=== PATIENT | male | born 1960 | race Caucasian/White ===

== ENCOUNTER 2020-07-19 11:55 | Outpatient (REF) | payer BC, SELFPAY ==
[2020-07-19 14:34] LABS: Ferritin 532 ng/mL (20-250)
== END 2020-07-19 11:56 | disposition home or self-care (01) ==
LOC: HO.BBR 11:55
PROVIDERS: PCP Internal Medicine; Visit Provider Internal Medicine Hematology & Oncology
DX: E83.110 Hereditary hemochromatosis (principal)
CPT/HCPCS: 36415; 82728

== ENCOUNTER 2020-08-01 14:15 | Outpatient (REF) | payer BC, SELFPAY | END 2020-08-01 14:16 | disposition home or self-care (01) | LOC: HO.BBR 14:15 | PROVIDERS: PCP Internal Medicine; Visit Provider Internal Medicine Hematology & Oncology | DX: Z13.89 Encounter for screening for other disorder (principal) ==

== ENCOUNTER 2020-08-15 10:05 | Outpatient (REF) | payer BC, SELFPAY | END 2020-08-15 10:06 | disposition home or self-care (01) | LOC: HO.BBR 10:05 | PROVIDERS: PCP Internal Medicine; Visit Provider Internal Medicine Hematology & Oncology | DX: Z13.89 Encounter for screening for other disorder (principal) ==

== ENCOUNTER 2020-09-07 14:27 | Outpatient (REF) | payer BC, SELFPAY | END 2020-09-07 14:28 | disposition home or self-care (01) | LOC: HO.BBR 14:27 | PROVIDERS: Visit Provider Internal Medicine Hematology & Oncology | DX: Z13.89 Encounter for screening for other disorder (principal) ==

== ENCOUNTER 2020-09-20 13:00 | Outpatient (REF) | payer BC, SELFPAY ==
[2020-09-20 14:03] LABS: Ferritin 200 ng/mL (20-250)
== END 2020-09-20 13:01 | disposition home or self-care (01) ==
LOC: HO.BBR 13:00
PROVIDERS: Visit Provider Internal Medicine Hematology & Oncology
DX: E83.110 Hereditary hemochromatosis (principal)
CPT/HCPCS: 36415; 82728

== ENCOUNTER 2020-10-06 13:08 | Outpatient (REF) | payer BC, SELFPAY | END 2020-10-06 13:09 | disposition home or self-care (01) | LOC: HO.BBR 13:08 | PROVIDERS: Visit Provider Internal Medicine Hematology & Oncology | DX: Z13.89 Encounter for screening for other disorder (principal) ==

== ENCOUNTER 2024-07-22 08:01 | Outpatient (REF) | payer BC, SELFPAY ==
--- OUTSIDE RECORDS SUMMARY | 2024-07-22 08:05 | XMS_ITS | Clinical Summary ---
Author Organization [facility] Address [address] [place] [address] Phone Care Team Providers Care Silk Weaver Name Role Phone Carlos Angel MD Primary Care Provider [phone] Allergies No known active allergies Medications multivitamin with minerals (CENTRUM/CERTA VIT) 18-400 mg-mcg tablet tablet Take 1 tablet by mouth. Active acyclovir (ZOVIRAX) 400 mg tablet Take 1 tablet (400 mg total) by mouth 2 (two) times a day. 4 Active ascorbic acid (VITAMIN C) 250 mg tablet Take 1 tablet (250 mg total) by mouth 1 (one) time each day. Active cholecalcifero l (VITAMIN D-3) 25 mcg (1,000 unit) tablet Take 1 tablet (1,000 Units total) by mouth 1 (one) time each day. Active sildenafiL (VIAGRA) 100 mg tablet Take 1 tablet (100 mg total) by mouth if needed for erectile dysfunction. 30 minutes prior to intercourse 10 tablet 3 5 Active sildenafiL (VIAGRA) 100 mg tablet Take 1 tablet (100 mg total) by mouth if needed for erectile dysfunction. 30 minutes prior to intercourse 3 025 Discontin ued(Reord er) polyethylene glycol (Golytely) 236-22.74-6.74 -5.86 gram solution Take 4L by mouth once for one dose. May substitue any PEG. Starting at 6PM the night before your procedure drink 1 8oz glasses at your own pace until you complete half of the gallon. Finish 2nd half of the gallon 5 hours before your procedure. 4000 mL 5 025 Discontin ued(Thera py completed ) bisacodyL (DULCOLAX) 5 mg EC tablet Take 2 tablets by mouth right before beginning bowel prep. See instructions provided by the office 2 tablet 5 025 Discontin ued(Thera py completed ) Active Problems Problem Noted Date Diagnosed Date Myelodysplasia (myelodysplastic syndrome) 2021 Hypertriglyceridemia 12/10/2013 Erectile dysfunction 10/20/2012 Encounters Date Type Department Care Team Description 06/30/2024 12:30 PM EST [facility] [address] [place] [address] Carlos Angel MD Adult general medical examination (Primary Dx); Screening for deficiency anemia; Screening for hyperlipidemia; Screening for diabetes mellitus; Screening for prostate cancer; Screening for thyroid disorder; Hearing loss, unspecified hearing loss type, unspecified laterality; Nocturia; Leg cramping; HIRAM (obstructive sleep apnea) 06/17/2024 2:31 PM EST Anesthesia Event [facility] Endoscopy [address] [place] [address] Daniel Jacobsen DO Chang, Daniel J, MD 06/17/2024 2:13 PM EST - 06/17/2024 11:59 PM EST Hospital Encounter [facility] Endoscopy [address] [place] [address] Stephanie Barton DO Korobkov, Vitaliy, DO Hx of adenomatous colonic polyps Discharge Disposition: Home or Self Care from Last 3 Months Immunizations Name Administration Dates Next Due Influenza Quadravalent, MDCK , 0.5ml, preservative free (Flucelvax) 6mo and older 02/11/2023 Influenza Quadravalent, MDCK , 0.5ml, with preservative (Flucelvax) 6mo and older 02/11/2020 Moderna SARS-CoV-2 COVID-19, mRNA, LNP-S, preservative free 04/24/2021,08/06/2020,07/09/2020 Pneumococcal polysaccharide 23 valent (Pneumovax 23) 2yo and older 10/31/2021 Td Tetanus diptheria (Tdvax) 7yo and older 01/23 Tdap Tetanus diptheria acell ular pertussis (Boostrix; Adacel) 7yo and older 01/05/2009 Surgical History Surgery Date Site/Laterality Comments OTHER SURGICAL HISTORY PROCEDURE: DENIES PREVIOUS SURGERY COLONOSCOPY 06/13/09 PROCEDURE: HISTORICAL COLONOSCOPY; COMMENT: adenoma and diverticulosis; repeat in three years COLONOSCOPY 03/30/13 PROCEDURE: CA COLONOSCOPY STOMA DX INCLUDING COLLJ SPEC SPX; COMMENT: tics; repeat in 5 yrs Medical History Medical History Date Comments Herpes zoster without mentio n of complication 05/22/2006 DX:Herpes zoster without men tion of complication Family History Medical History Relation Name Comments Colon cancer Father HTN Hypertension Mother Relation Name Status Comments Brother Alive Father COLON CA Mother Alive Sister 1 Alive Sister 2 Alive Social History Tobacco Use Types Packs/Day Years Used Date Smoking Tobacco: Never Smokeless Tobacco: Never Tobacco Cessation:Counseling Given: Not Answered Alcohol Use Standard Drinks/Week Comments Yes 0 (1 standard drink = 0.6 oz pur e alcohol) Housing Instability Answer Date Recorde d Are you worried that in the next 2 months you may not have stable housing? No 06/25/2024 Food Access & Nutrition Answer Date Rec orded Do you have access to a vari ety of food including fruits and vegetables? Yes 06/25/2024 Access to Healthcare Answer Date Record ed Within the last 3 months, ho w many times did you visit the emergency department for your medical care? 0 06/25/2024 Health Literacy Answer Date Recorded How often do you need to hav e someone help you when you read instructions, pamphlets, or other written material from your doctor or pharmacy? Never 06/25/2024 Caregiver: How often do you need to have someone help you when you read instructions, pamphlets, or other written material from your doctor or pharmacy? Not on file 06/25/2024 Financial Risk Answer Date Recorded How hard is it for you to pa y for the very basics like food, housing, medical care, and air conditioning / heating? Not very hard 06/25/2024 Transportation Answer Date Recorded Has the lack of transportati on kept you from meetings, work, or from getting things needed for daily living? No Has the lack of transportati on kept you from medical appointments or from getting medications? No 06/25/2024 Social Isolation Answer Date Recorded How often do you feel lonely or isolated from th ose around you? Never 06/25/2024 Food Risk Answer Date Recorded Within the past 12 months we worried whether our food would run out before we got money to buy more. Never true 06/25/2024 Within the past 12 months th e food we bought just didn't last and we didn't have money to get more. Never true 06/25/2024 Dependent Care Answer Date Recorded Do you need help finding or paying for care for your loved ones. For example, child monitor or elderly care for an older adult? No 06/25/2024 Education Answer Date Recorded Do you think completing more education or training, like finishing a GED, going to college, or learning a trade, would be helpful for you? No 06/25/2024 Employment and Income Answer Date Recor ded During the last four weeks, have you been actively looking for work? No 06/25/2024 Living Situation Answer Date Recorded What is your living situation? 0 06/25/2024 Interpersonal Safety Answer Date Record ed Physical Abuse 06/17/2024 Verbal Abuse 06/17/2024 Sex and Gender Information Value Date Recorded Sex Assigned at Male 06/17/2024 2:10 PM EST Legal Sex Male 1:54 AM EST Gender Identity Male 06/17/2024 2:10 PM EST Sexual Orientation Straight 06/17/2024 2: 10 PM EST Obstetrics History Last Filed Vital Signs Vital Sign Reading Time Taken Comments Blood Pressure 118/73 06/30/2024 12:40 PM EST A Pulse 84 06/30/2024 12:40 PM EST Temperature 36.1 ??C (97 ??F) 06/17/2024 2:30 PM EST Respiratory Rate 17 06/17/2024 3:16 PM EST Oxygen Saturation 100% 06/17/2024 3:16 PM EST Inhaled Oxygen Concentration - - Weight 96.6 kg (213 lb) 06/30/2024 12:40 PM EST Height 177.8 cm (5' 10 ) 06/30/2024 12:40 PM EST Body Mass Index 30.56 06/30/2024 12:40 PM EST Plan of Treatment Upcoming Encounters Date Type Department Care Team (Late st Contact Info) Description 08/20/2024 2:00 PM EDT Consult Vascular Surgery - [place] [address] [place] [address] Rachele Snider MD [address] [place] [address] Health Maintenance Due Date Last Done Comments Pneumococcal Vaccine: 50+ Years (2 of 2 - PCV) 10/31/2022 10/31/2021 Pneumococcal Vaccine: Pediatrics (0 to 5 Years) and At-Risk Patients (6 to 64 Years) (2 of 2 - PCV) 10/31/2022 10/31/2021 Falls Risk Assessment 06/17/2025 06/17/2024 Depression Screening 06/25/2025 06/25/2024 Social Influencers of Health Screening 06/25/2025 06/25/2024 DTaP,Tdap,and Td Vaccines (3 - Td or Tdap) 01/23/2029 01/23/2019, 01/05/2009 Colorectal Cancer Screening: Colonoscopy 06/17/2029 06/17/2024, 10/13/2018 Cholesterol Screening (Lipid Panel) 07/06/2029 07/06/2024, 02/11/2023 RSV Immunization Patients 60+ Years Old (1 - 1-dose 75+ series) 2033 Hepatitis C Screening Completed 03/04/2015 Zoster Vaccines Completed 07/14/2021, 04/24/2021 Influenza Vaccine Completed 02/28/2024, , 01/30/2021, Additional history exists COVID-19 Vaccine Completed 04/29/2024, 07/2022, 03/28/2022, Additional history exists HIB Vaccines Aged Out No longer eligi ble based on patient's age to complete this topic HPV Vaccines Aged Out No longer eligi ble based on patient's age to complete this topic Hepatitis A Vaccines Aged Out No long er eligible based on patient's age to complete this topic Hepatitis B Vaccines Aged Out No long er eligible based on patient's age to complete this topic IPV Vaccines Aged Out No longer eligi ble based on patient's age to complete this topic MMR Vaccines Aged Out No longer eligi ble based on patient's age to complete this topic Meningococcal ACWY Vaccine Aged Out N o longer eligible based on patient's age to complete this topic Meningococcal B Vacine Aged Out No lo nger eligible based on patient's age to complete this topic RSV Immunization Patients Under 20 months Aged Out No longer eligible based on patient's age to complete this topic Varicella Vaccines Aged Out No longer eligible based on patient's age to complete this topic Procedures Procedure Name Priority Date/Time Associated Diagnosis Comments PROSTATE SPECIFIC ANTIGEN SCREEN Routine 07/06/2024 9:55 AM EST Screening for deficiency anemia Screening for diabetes mellitus Screening for hyperlipidemia Screening for thyroid disorder Encounter for screening prostate specific antigen (PSA) measurement THYROID STIMULATING HORMONE WITH REFLEX TO FREE T4 AND FREE T3 Routine 07/06/2024 9:55 AM EST Screening for thyroid disorder LIPID PANEL WITH REFLEX TO DIRECT LDL Routine 07/06/2024 9:55 AM EST Screening for hyperlipidemia COMPREHENSIVE METABOLIC PANEL Routine 07/06/2024 9:55 AM EST Screening for diabetes mellitus COLONOSCOPY Routine 06/17/2024 2:55 PM EST Hx of adenomatous colonic polyps TISSUE EXAM Routine 06/17/2024 2:47 PM EST Hx of adenomatous colonic polyps HEPATITIS C SCREENING Routine 03/04/2015 from Last 3 Months or Most Recently Relevant to Health Maintenance Results * Prostate specific antigen screen (07/06/2024 9:55 AM EST) PSA 0.68 0.00 - 4.00 ng/mL LAB CHEMISTRY METHOD 07/06/2024 3:40 PM EST [facility] Blood Venous blood specimen / Unknown Venipuncture / Unknown 07/06/2024 9:55 AM EST 07/06/2024 9:55 AM EST Narrative [facility] - 07/06/2024 3:40 PM EST The Siemens Advia Centaur Chemiluminescent Immunoassay is used. Results obtained with different assay methods or kits cannot be used interchangeably. Results cannot be interpreted as absolute evidence of the presence or absence of malignant disease. us Carlos Angel MD LAB BLOOD ORDERABLES Final Res ult Performing Organization Address [facility]/ZIP Co de Phone Number [facility] [address] [place] [address], [place] [phone] * Thyroid stimulating hormone with reflex to free t4 and free t3 (07/06/2024 9:55 AM EST) Pathologist [facility] [place] TSH 2.77 0.40 - 4.00 mcIU/mL LAB CHEMISTRY METHOD 07/06/2024 2:54 PM EST [facility] Blood Venous blood specimen / Unknown Venipuncture / Unknown 07/06/2024 9:55 AM EST 07/06/2024 9:55 AM EST us Carlos Angel MD LAB BLOOD ORDERABLES Final Res ult Performing Organization Address [facility]/ZIP Co de Phone Number [facility] [address] [place] [address], [place] [phone] * (ABNORMAL) Lipid panel with reflex to direct LDL (07/06/2024 9:55 AM EST) Cholesterol 180 0 - 200 mg/dL LAB CHEMISTRY METHOD 07/06/2024 3:17 PM EST [facility] Triglycerides 171(H) 0 - 150 mg/dL LAB CHEMISTRY METHOD 07/06/2024 3:17 PM EST [facility] HDL 53 >=40 mg/dL LAB CHEMISTRY METHOD 07/06/2024 3:17 PM EST [facility] LDL Calculated 93 0 - 100 mg/dL LAB CHEMISTRY METHOD 07/06/2024 3:17 PM EST [facility] VLDL Cholesterol Mick 34.2 mg/dL LAB CHEMISTRY METHOD 07/06/2024 3:17 PM [facility] Non HDL Chol. (LDL+VLDL) 127 <145 mg/dL LAB CHEMISTRY METHOD 07/06/2024 3:17 PM [facility] Chol/HDL Ratio 3.4 0.0 - 4.4 LAB CHEMISTRY METHOD 07/06/2024 3:17 PM [facility] Blood Venous blood specimen / Unknown Venipuncture / Unknown 07/06/2024 9:55 AM EST 07/06/2024 9:55 AM EST us Carlos Angel MD LAB BLOOD ORDERABLES Final Res ult [facility] [address] [place] [address], [place] [phone] * (ABNORMAL) Comprehensive metabolic panel (07/06/2024 9:55 AM EST) Sodium 134 133 - 145 mmol/L LAB CHEMISTRY METHOD 07/06/2024 3:17 PM [facility] Potassium 5.0 3.5 - 5.5 mmol/L LAB CHEMISTRY METHOD 07/06/2024 3:17 PM [facility] Chloride 101 96 - 110 mmol/L LAB CHEMISTRY METHOD 07/06/2024 3:17 PM [facility] CO2 30 21 - 32 mmol/L LAB CHEMISTRY METHOD 07/06/2024 3:17 PM [facility] Anion Gap 3 3 - 11 LAB CHEMISTRY METHOD 07/06/2024 3:17 PM [facility] Glucose 98 70 - 100 mg/dL LAB CHEMISTRY METHOD 07/06/2024 3:17 PM [facility] BUN 17 5 - 25 mg/dL LAB CHEMISTRY METHOD 07/06/2024 3:17 PM [facility] Creatinine 1.36(H) 0.70 - 1.30 mg/dL LAB CHEMISTRY METHOD 07/06/2024 3:17 PM [facility] eGFR 58(L) >=60 mL/min/1. 73m2 LAB CHEMISTRY METHOD 07/06/2024 3:17 PM [facility] Comment:Calculation based on the??Chronic Kidney Disease Epidemiology Collaboration (CKD-EPI) equation refit??without adjustment for race. BUN/Creatinine Ratio 12.5 LAB CHEMISTRY METHOD 07/06/2024 3:17 PM [facility] Calcium 9.5 8.5 - 10.5 mg/dL LAB CHEMISTRY METHOD 07/06/2024 3:17 PM [facility] AST (SGOT) 33 10 - 42 unit/L LAB CHEMISTRY METHOD 07/06/2024 3:17 PM [facility] ALT (SGPT) 33 10 - 60 unit/L LAB CHEMISTRY METHOD 07/06/2024 3:17 PM [facility] Alkaline Phosphatase 74 42 - 121 unit/L LAB CHEMISTRY METHOD 07/06/2024 3:17 PM [facility] Total Protein 7.6 6.0 - 8.0 g/dL LAB CHEMISTRY METHOD 07/06/2024 3:17 PM [facility] Albumin 3.9 3.2 - 5.0 g/dL LAB CHEMISTRY METHOD 07/06/2024 3:17 PM [facility] Total Bilirubin 0.9 0.0 - 1.4 mg/dL LAB CHEMISTRY METHOD 07/06/2024 3:17 PM [facility] Blood Venous blood specimen / Unknown Venipuncture / Unknown 07/06/2024 9:55 AM EST 07/06/2024 9:55 AM EST us Carlos Angel MD LAB BLOOD ORDERABLES Final Res ult [facility] [address] [place], [place] [address] [phone] * COLONOSCOPY Anesthesia - MAC; [facility] ENDOSCOPY (06/17/2024 2:55 PM EST) Anatomical Region Laterality Modality Endoscopy 06/17/2024 2:22 PM EST Impressions 06/17/2024 2:55 PM EST - Hemorrhoids found on perianal exam. ? - One 7 mm polyp in the ascending colon, removed with ? a cold snare. Resected and retrieved. ? - The examination was otherwise normal on direct and ? retroflexion views. ? - Congested mucosa in the sigmoid colon. Biopsied. Recommendation: ?- - Discharge patient to home. ? - High fiber diet. ? - Continue present medications. ? - Await pathology results. ? - Repeat colonoscopy for surveillance based on ? pathology results. Narrative 06/17/2024 2:55 PM EST [facility] GI Patient Name: Yann Patel Procedure Date: 06/17/2024 2:22 PM Date of : 1960 Age: 63 Gender: Male Note Status: Finalized Attending MD: Stephanie Barton DO, [id number] Procedure Date No Time: 06/17/2024 Procedure: ? Colonoscopy Indications: ? High risk colon cancer surveillance: Personal history ? of colonic polyps Providers: ? Stephanie Barton DO Referring MD: ?Carlos Angel MD Medicines: ? Monitored Anesthesia Care Complications: ? No immediate complications. Estimated blood loss: ? Minimal. Estimated Blood Loss: ? Estimated blood loss was minimal. Procedure: ? Pre-Anesthesia Assessment: ? - - Prior to the procedure, a History and Physical was ? performed, and patient medications and allergies were ? reviewed. The patient is competent. The risks and ? benefits of the procedure and the sedation options and ? risks were discussed with the patient. All questions ? were answered and informed consent was obtained. ? Patient identification and proposed procedure were ? verified by the physician, the nurse, the ? anesthesiologist, the ediscovery project manager and the environmental health technician ? in the pre-procedure area in the endoscopy suite. ? Mental Status Examination: alert and oriented. Airway ? Examination: normal oropharyngeal airway and neck ? mobility. Respiratory Examination: clear to ? auscultation. CV Examination: normal. Prophylactic ? Antibiotics: The patient does not require prophylactic ? antibiotics. Prior Anticoagulants: The patient has ? taken no anticoagulant or antiplatelet agents. ASA ? Grade Assessment: II - A patient with severe systemic ? disease. After reviewing the risks and benefits, the ? patient was deemed in satisfactory condition to ? undergo the procedure. The anesthesia plan was to use ? monitored anesthesia care (MAC). Immediately prior to ? administration of medications, the patient was ? re-assessed for adequacy to receive sedatives. The ? heart rate, respiratory rate, oxygen saturations, ? blood pressure, adequacy of pulmonary ventilation, and ? response to care were monitored throughout the ? procedure. The physical status of the patient was ? re-assessed after the procedure. ? After I obtained informed consent, the scope was ? passed under direct vision. Throughout the procedure, ? the patient's blood pressure, pulse, and oxygen ? saturations were monitored continuously. The ? Colonoscope was introduced through the anus and ? advanced to the cecum, identified by appendiceal ? orifice and ileocecal valve. The colonoscopy was ? performed without difficulty. The patient tolerated ? the procedure well. Findings: ?Hemorrhoids were found on perianal exam. ? A few small-mouthed diverticula were found in the ? sigmoid colon and descending colon. There was no ? evidence of diverticular bleeding. ? A 7 mm polyp was found in the ascending colon. The ? polyp was sessile. The polyp was removed with a cold ? snare. Resection and retrieval were complete. ? Estimated blood loss was minimal. ? The exam was otherwise without abnormality on direct ? and retroflexion views. ? An area of mildly congested mucosa was found in the ? sigmoid colon. This was biopsied with a cold forceps ? for histology. Estimated blood loss was minimal. Procedure Code(s): ? --- Professional --- ? 36882, Colonoscopy, flexible; with removal of ? tumor(s), polyp(s), or other lesion(s) by snare ? technique ? 48331, 59, Colonoscopy, flexible; with biopsy, single ? or multiple Diagnosis Code(s): ? --- Professional --- ? Z86.010, Personal history of colonic polyps ? K64.9, Unspecified hemorrhoids ? D12.2, Benign neoplasm of ascending colon ? K63.89, Other specified diseases of intestine CPT copyright 2020 [employer]. All rights reserved. The codes documented in this report are preliminary and upon physician support coordinator review may be revised to meet current compliance requirements. STEPHANIE Barton DO 06/17/2024 2:54:56 PM This report has been signed electronically.Stephanie Barton DO Number of Addenda: 0 Note Initiated On: 06/17/2024 2:22 PM Scope Withdrawal Time: 0 hours 6 minutes 20 seconds Scope In: 2:43:23 PM Scope Out: 2:52:53 PM ? Endoscopy Department at [facility] - [address] [place] [address], ? [place] [address] Procedure Note Stephanie Barton DO - 06/17/2024 [facility] GI Patient Name: Yann Patel Procedure Date: 06/17/2024 2:22 PM Date of : 1960 Age: 63 Gender: Male Note Status: Finalized Attending MD: Stephanie Barton DO, [id number] Procedure Date No Time: 06/17/2024 Procedure: Colonoscopy Indications: High risk colon cancer surveillance: Personalhistory of colonic polyps Providers: Stephanie Barton DO Referring MD: Carlos Angel MD Medicines: Monitored Anesthesia Care Complications: No immediate complications. Estimated blood loss: Minimal. Estimated Blood Loss: Estimated blood loss was minimal. Procedure: Pre-Anesthesia Assessment: - - Prior to the procedure, a History and Physicalwas performed, and patient medications and allergieswere reviewed. The patient is competent. The risks and benefits of the procedure and the sedation optionsand risks were discussed with the patient. Allquestions were answered and informed consent was obtained. Patient identification and proposed procedure were verified by the physician, the nurse, the anesthesiologist, the ediscovery project manager and thetechnician in the pre-procedure area in the endoscopy suite. Mental Status Examination: alert and oriented.Airway Examination: normal oropharyngeal airway and neck mobility. Respiratory Examination: clear to auscultation. CV Examination: normal. Prophylactic Antibiotics: The patient does not requireprophylactic antibiotics. Prior Anticoagulants: The patient has taken no anticoagulant or antiplatelet agents. ASA Grade Assessment: II - A patient with severesystemic disease. After reviewing the risks and benefits,the patient was deemed in satisfactory condition to undergo the procedure. The anesthesia plan was touse monitored anesthesia care (MAC). Immediately priorto administration of medications, the patient was re-assessed for adequacy to receive sedatives. The heart rate, respiratory rate, oxygen saturations, blood pressure, adequacy of pulmonary ventilation,and response to care were monitored throughout the procedure. The physical status of the patient was re-assessed after the procedure. After I obtained informed consent, the scope was passed under direct vision. Throughout theprocedure, the patient's blood pressure, pulse, and oxygen saturations were monitored continuously. The Colonoscope was introduced through the anus and advanced to the cecum, identified by appendiceal orifice and ileocecal valve. The colonoscopy was performed without difficulty. The patient tolerated the procedure well. Findings: Hemorrhoids were found on perianal exam. A few small-mouthed diverticula were found in the sigmoid colon and descending colon. There was no evidence of diverticular bleeding. A 7 mm polyp was found in the ascending colon. The polyp was sessile. The polyp was removed with acold snare. Resection and retrieval were complete. Estimated blood loss was minimal. The exam was otherwise without abnormality ondirect and retroflexion views. An area of mildly congested mucosa was found in the sigmoid colon. This was biopsied with a coldforceps for histology. Estimated blood loss was minimal. Procedure Code(s): --- Professional --- 08869, Colonoscopy, flexible; with removal of tumor(s), polyp(s), or other lesion(s) by snare technique 80117, 59, Colonoscopy, flexible; with biopsy,single or multiple Diagnosis Code(s): --- Professional --- Z86.010, Personal history of colonic polyps K64.9, Unspecified hemorrhoids D12.2, Benign neoplasm of ascending colon K63.89, Other specified diseases of intestine CPT copyright 2020 [employer]. All rights reserved. The codes documented in this report are preliminary and upon physician support coordinator reviewmay be revised to meet current compliance requirements. STEPHANIE Barton DO 06/17/2024 2:54:56 PM This report has been signed electronically.Stephanie Barton DO Number of Addenda: 0 Note Initiated On: 06/17/2024 2:22 PM Scope Withdrawal Time: 0 hours 6 minutes 20 seconds Scope In: 2:43:23 PM Scope Out: 2:52:53 PM Endoscopy Department at [facility] - [address] [place] [id number] IMPRESSION: - Hemorrhoids found on perianal exam. - One 7 mm polyp in the ascending colon, removedwith a cold snare. Resected and retrieved. - The examination was otherwise normal on directand retroflexion views. - Congested mucosa in the sigmoid colon.Biopsied. Recommendation: - - Discharge patient to home. - High fiber diet. - Continue present medications. - Await pathology results. - Repeat colonoscopy for surveillance based on pathology results. Stephanie Barton DO GI~PROCEDURE ORDERABLES Final Re sult * Tissue exam (06/17/2024 2:47 PM EST) Final Diagnosis A. Large Intestine, Right/Ascending Colon, polyp x1: - Tubular adenoma. B. Large Intestine, Sigmoid Colon, segmental colitis biopsy: - Colonic mucosa with lamina propria hemorrhage. - Negative for acute inflammation, architectural distortion, and granuloma. 06/18/2024 12:29 PM EST [facility] Gross Description A. Large Intestine, Right/Ascending Colon, polyp x1: Labeled ascending colon polyp x 1 . Received in formalin are three irregular brody mucosal tissue fragments, ranging from 0.2 cm to 0.5 cm in greatest dimension, which are wrapped in paper and submitted in toto in one cassette, three pieces, multiple levels on one slide. B. Large Intestine, Sigmoid Colon, segmental colitis biopsy: Labeled segmental, sigmoid colon . Received in formalin are two irregular pink-red mucosal tissue fragments, each measuring approximately 0.3 cm in greatest dimension, which are wrapped in paper and submitted in toto in one cassette, two pieces, multiple levels on one slide. LOAN 06/18/2024 12:29 PM EST [facility] Disclaimer Unless otherwise specified, all tissue is 10% NB formalin fixed and paraffin embedded. 06/18/2024 12:29 PM EST [facility] Tissue Ascending colon structure / Unknown 06/17/2024 2:47 PM EST 06/17/2024 3:56 PM EST Tissue specimen (specimen) Sigmoid colon structure / Unknown 06/17/2024 2:50 PM EST 06/17/2024 3:56 PM EST Stephanie Barton DO LAB PATHOLOGY ORDERABLES Final R esult [facility] [address] [place] [address], * Hepatitis C Screening (03/04/2015) Hepatitis C Screening Abstracted Historical Provider HEALTH MAINTENANCE Final Result from Last 3 Months or Most Recently Relevant to Health Maintenance [place] [address] [facility] MEDICARE Care Teams Silk Weaver Relationship Specialty Start Date End Date Carlos Angel MD [address] [place] [phone] PCP - General 12/11/08
--- OUTSIDE RECORDS SUMMARY | 2024-07-22 08:05 | XMS_ITS | Encounter Summary ---
Author Organization [facility] Address [address] [place] [address] Care Team Providers Care Content Strategist Name Role Phone Carlos Angel MD Primary Care Provider [phone] Reason for Referral * Consultation (Routine) - Authorized Specialty Diagnoses / Procedures Referred By Alvarez t Referred To Contact Pulmonary Disease Diagnoses HIRAM (obstructive sleep apnea) Carlos Angel MD [address] [place] [address] Phone: tel: fax: Laci Parsons MD [address] [place] [address] Phone: tel: fax: Referral ID Status Reason Start Date Expiration Date Visits Requested Visits Authorized [id number] Authorized Specialty Services Required 06/30/2024 06/30/2025 1 1 * Consultation (Routine) - Authorized Specialty Diagnoses / Procedures Referred By Contac t Referred To Contact Vascular Surgery Diagnoses Leg cramping Carlos Angel MD [address] [place] [address] Phone: tel: fax: Rachele Snider MD [address] [address] Phone: tel: fax: Referral ID Status Reason Start Date Expiration Date Visits Requested Visits Authorized [id number] Authorized Specialty Services Required 06/30/2024 06/30/2025 1 1 * Consultation (Routine) - Authorized Specialty Diagnoses / Procedures Referred By Contac t Referred To Contact Urology Diagnoses Nocturia Carlos Angel MD [address] [place] [phone] Phone: tel: fax: Yann Ching MD [address] [phone] Phone: tel: Referral ID Status Reason Start Date Expiration Date Visits Requested Visits Authorized [id number] Authorized Specialty Services Required 06/30/2024 06/30/2025 6 6 * Consultation (Routine) - Authorized Specialty Diagnoses / Procedures Referred By Contac t Referred To Contact Audiology Diagnoses Hearing loss, unspecified hearing loss type, unspecified laterality Carlos Angel MD [address] [place] [phone] Phone: tel: fax: [address] Phone: tel: Referral ID Status Reason Start Date Expiration Date Visits Requested Visits Authorized [id number] Authorized Specialty Services Required 06/30/2024 06/30/2025 6 6 Reason for Visit * Reason Comments Annual Exam Encounter Details Date Type Department Care Team (Late st Contact Info) Description 06/30/2024 12:30 PM EST Office Visit Internal Medicine - [address] [phone] Carlos Angel MD [address] [place] [phone] Adult general medical examination (Primary Dx); Screening for deficiency anemia; Screening for hyperlipidemia; Screening for diabetes mellitus; Screening for prostate cancer; Screening for thyroid disorder; Hearing loss, unspecified hearing loss type, unspecified laterality; Nocturia; Leg cramping; HIRAM (obstructive sleep apnea) Social History Tobacco Use Types Packs/Day Years [...] for your loved ones. For example, child care giver or elderly care for an older adult? [...] Orientation Straight 06/17/2024 2: 10 PM EST documented as of this encounter Last Filed Vital Signs Vital Sign Reading Time Taken Comments Blood Pressure 118/73 06/30/2024 12:40 PM EST A Pulse 84 06/30/2024 12:40 PM EST Temperature - - Respiratory Rate - - Oxygen Saturation - - Inhaled Oxygen Concentration - - Weight 96.6 kg (213 lb) 06/30/2024 12:40 PM EST Height 177.8 cm (5' 10 ) 06/30/2024 12:40 PM EST Body Mass Index 30.56 06/30/2024 12:40 PM EST documented in this encounter Ordered Prescriptions Prescription Sig Dispense Quantity Refills Last Filled Start Date End Date sildenafiL (VIAGRA) 100 mg tablet Take 1 tablet (100 mg total) by mouth if needed for erectile dysfunction. 30 minutes prior to intercourse 10 tablet 3 06/30/2024 documented in this encounter Progress Notes * Carlos Angel MD - 06/30/2024 12:30 PM EST CHIEF COMPLAINT: Annual Exam IDENTIFIER: Yann Gracia is a 63 y.o. old male. History of Present Illness The patient presents for a physical exam. He reports experiencing nocturia, necessitating 6 to 7 bathroom visits per night, with a usual frequency of 3 to 4 times. He recalls being prescribed medication by a urologist to manage this symptom,but it has not been effective. He also mentions occasional leg cramps at night, particularly in the calves, and sporadic rib discomfort. These symptoms are not severe enough to disrupt his sleep, but he often finds relief from walking. He maintains a high water intake throughout the day and incorporates an hour of walking into his daily routine. He has been diagnosed with mild sleep apnea, but he does not perceive it as a significant issue. His has observed him gasping for air during sleep, leading her to suggest the use of a CPAP mask,which he is reluctant to use. He is requesting a refill of sildenafil. His has expressed concerns about his hearing, prompting him to inquire about potential interventions. Supplemental Information He is being treated for myelodysplastic syndrome. MEDICATIONS Sildenafil. IMMUNIZATIONS He has received the most recent COVID-19 and influenza vaccines. ROS: GENERAL: Negative for malaise, significant weight loss and fever HEENT: No changes in hearing or vision. No nosebleeds or other nasal problems NECK: Negative for lumps, goiter, pain, and significant neck swelling RESPIRATORY: No cough, wheezing or shortness of breath CARDIOVASCULAR: Negative for chest pain, leg swelling and palpitations GI: Negative for abdominal discomfort, changes in bowel habits, blood in stool or black stools : Negative for dysuria, frequency, and incontinence MUSCULOSKELETAL: Negative for joint pain or swelling, back pain and muscle pain. SKIN: No lesions, rash, or itching PSYCH: No sleep disturbances, depression or major stressors HEMATOLOGY/LYMPHOLOGY: No prolonged bleeding, easy bruising, or swollen lymph nodes ENDOCRINE: Negative for cold or heat intolerance, polyuria, polydipsia and goiter NEURO: No persistent headache, fainting, seizures, strokes, TIAs, weakness, numbness or tingling The remainder of review of systems is noncontributory. PAST MEDICAL HISTORY: Patient Active Problem List Diagnosis Date Noted Myelodysplasia (myelodysplastic syndrome) ([facility]) 06/09/2021 Hypertriglyceridemia 12/10/2013 Erectile dysfunction 10/20/2012 SOCIAL HISTORY: Social History Tobacco Use Smoking status: Never Smokeless tobacco: Never Substance Use Topics Alcohol use: Yes FAMILY HISTORY: Family Status Relation Name Status Mother Alive Father COLON CA Sister Alive Sister Alive Brother Alive No partnership data on file Family History Problem Relation Name Age of Onset Hypertension Mother Colon cancer Father HTN ACTIVE MEDICATIONS: Outpatient Medications Marked as Taking for the 06/30/24 encounter (Office Visit) with Carlos Angel MD Medication Sig Dispense Refill acyclovir (ZOVIRAX) 400 mg tablet Take 1 tablet (400 mg total) by mouth 2 (two) times a day. sildenafiL (VIAGRA) 100 mg tablet Take 1 tablet (100 mg total) by mouth if needed for erectile dysfunction. 30 minutes prior to intercourse 10 tablet 3 [DISCONTINUED] sildenafiL (VIAGRA) 100 mg tablet Take 1 tablet (100 mg total) by mouth if needed for erectile dysfunction. 30 minutes prior to intercourse ALLERGIES: Patient has no known allergies. PHYSICAL EXAM: Blood pressure 118/73, pulse 84, height 1.778 m (70 ), weight 96.6 kg (213 lb). Body mass index is 30.56 kg/m??. BMI is greater than 25.0 (above the normal range) - see Plan APPEARANCE: healthy EYES: PERRLA, conjunctiva and sclera normal and normal fundal exam EARS: External ears normal. Canals clear. TMs normal. NOSE/SINUS: Nares normal. Septum midline. Mucosa normal. No drainage or sinus tenderness MOUTH/THROAT: no erythema, lesions, or exudates NECK: Neck supple, no adenopathy, thyroid symmetric and of normal size HEART: RRR with normal S1 and S2, no murmurs, no gallops, no JVD appreciated CHEST: non-tender LUNG: clear to auscultation bilaterally ABDOMEN: Bowel sounds normoactive, no bruits and soft, non-tender, without organomegaly or palpablemasses BACK: no pain to palpation and good flexion and extension EXTREMITIES: Extremities warm and well perfused without clubbing, cyanosis, or edema NEURO: Awake, alert and oriented x 3 and reflexes symmetrical SKIN: Skin color, texture, turgor normal. No rashes or lesions. LABS/IMAGING: No results found for: WBC , HGB , HCT , MCV No results found for: NA , K , CO2 , CL , BUN , GLU , ALB , ALKPHOS , TP Lab Results Component Value Date CHOL 153 02/11/2023 LDL 62 02/11/2023 HDL 40 02/11/2023 TRIG 258 (A) 02/11/2023 IMPRESSION: 1. Adult general medical examination 2. Screening for deficiency anemia 3. Screening for hyperlipidemia 4. Screening for diabetes mellitus 5. Screening for prostate cancer 6. Screening for thyroid disorder 7. Hearing loss, unspecified hearing loss type, unspecified laterality 8. Nocturia 9. Leg cramping 10. HIRAM (obstructive sleep apnea) PLAN: 1. Health maintenance: The patient presented for an evaluation of general health. As part of this visit, we reviewed the following issues, which are considered an essential part of preventative health in this age group: - Prostate cancer screening with digital rectal exam and PSA testing in those expected to live for at least ten years - ordered - Colon cancer screening (colonoscopy every 10 years/annual FOBT plus flexi sigmoidoscopy every 5 years/double-contrast BE every 5 years/Cologuard every 3 years/Annual FOBT) - up to date. May discontinue at age 80 at the discretion of patient and provider. - Blood pressure screening yearly - Screening for Type 2 diabetes mellitus in those with hypertension and/or hyperlipidemia - Recommendations about immunizations - patient is up-to-date on immunizations I have obtained verbal consent from Yann Gracia prior to the recording. I have advised Yann Gracia that he may refuse the recording and require the recording to be turned off at any time duringthis encounter. Orders Placed This Encounter Procedures Complete blood count Standing Status: Future Standing Expiration Date: 06/30/2025 Comprehensive metabolic panel Standing Status: Future Standing Expiration Date: 06/30/2025 Lipid panel with reflex to direct LDL Standing Status: Future Standing Expiration Date: 06/30/2025 Prostate specific antigen screen Standing Status: Future Number of Occurrences: 1 Standing Expiration Date: 06/30/2025 Thyroid stimulating hormone with reflex to free t4 and free t3 Standing Status: Future Standing Expiration Date: 06/30/2025 Ambulatory referral to Audiology Standing Status: Future Standing Expiration Date: 06/30/2025 Referral Priority: Routine Referral Type: Consultation Referral Reason: Specialty Services Required Requested Specialty: Audiology Number of Visits Requested: 1 Ambulatory referral to Urology Standing Status: Future Standing Expiration Date: 06/30/2025 Referral Priority: Routine Referral Type: Consultation Referral Reason: Specialty Services Required Requested Specialty: Urology Number of Visits Requested: 1 Ambulatory referral to Vascular Surgery Standing Status: Future Standing Expiration Date: 06/30/2025 Referral Priority: Routine Referral Type: Consultation Referral Reason: Specialty Services Required Requested Specialty: Vascular Surgery Number of Visits Requested: 1 Ambulatory referral to Pulmonology Standing Status: Future Standing Expiration Date: 06/30/2025 Referral Priority: Routine Referral Type: Consultation Referral Reason: Specialty Services Required Requested Specialty: Pulmonary Disease Number of Visits Requested: 1 Carlos Angel MD on 06/30/2024 at 1:15 PM EST documented in this encounter Plan of Treatment Upcoming Encounters Date Type Department Care Team (Late st Contact Info) Description 08/20/2024 2:00 PM EDT Consult Vascular Surgery - [place] [address] [place] [address] Rachele Snider MD [address] [place] [address] Scheduled Referrals Name Type Priority Associated Diagnoses Order Schedule Ambulatory referral to Audiology Outpatient Referral Routine Hearing loss, unspecified hearing loss type, unspecified laterality 1 Occurrences starting 06/30/2024 until 06/30/2025 Ambulatory referral to Urology Outpatient Referral Routine Nocturia 1 Occurrences starting 06/30/2024 until 06/30/2025 Ambulatory referral to Vascular Surgery Outpatient Referral Routine Leg cramping 1 Occurrences starting 06/30/2024 until 06/30/2025 Ambulatory referral to Pulmonology Outpatient Referral Routine HIRAM (obstructive sleep apnea) 1 Occurrences starting 06/30/2024 until 06/30/2025 documented as of this encounter Results * Thyroid stimulating hormone with reflex to free t4 and free t3 (07/06/2024 9:55 AM EST) TSH 2.77 0.40 - 4.00 mcIU/mL LAB CHEMISTRY METHOD 07/06/2024 2:54 PM EST [facility] Blood Venous blood specimen / Unknown Venipuncture / Unknown 07/06/2024 9:55 AM EST 07/06/2024 9:55 AM EST us Carlos Angel MD LAB BLOOD ORDERABLES Final Res ult [facility] [address] [place] [address], [place] [phone] * (ABNORMAL) Lipid panel with reflex to direct LDL (07/06/2024 9:55 AM EST) Cholesterol 180 0 - 200 mg/dL LAB CHEMISTRY METHOD 07/06/2024 3:17 PM EST [facility] Triglycerides 171(H) 0 - 150 mg/dL LAB CHEMISTRY METHOD 07/06/2024 3:17 PM EST [facility] HDL 53 >=40 mg/dL LAB CHEMISTRY METHOD 07/06/2024 3:17 PM EST [facility] LDL Calculated 93 0 - 100 mg/dL LAB CHEMISTRY METHOD 07/06/2024 3:17 PM [facility] VLDL Cholesterol Mick 34.2 mg/dL LAB CHEMISTRY METHOD 07/06/2024 3:17 PM [facility] Non HDL Chol. (LDL+VLDL) 127 <145 mg/dL LAB CHEMISTRY METHOD 07/06/2024 3:17 PM EST [facility] Chol/HDL Ratio 3.4 0.0 - 4.4 LAB CHEMISTRY METHOD 07/06/2024 3:17 PM [facility] Blood Venous blood specimen / Unknown Venipuncture / Unknown 07/06/2024 9:55 AM EST 07/06/2024 9:55 AM EST us Carlos Angel MD LAB BLOOD ORDERABLES Final Res ult [facility] [address] [place] [address], [place] [phone] * (ABNORMAL) Comprehensive metabolic panel (07/06/2024 9:55 AM EST) Sodium 134 133 - 145 mmol/L LAB CHEMISTRY METHOD 07/06/2024 3:17 PM [facility] Potassium 5.0 3.5 - 5.5 mmol/L LAB CHEMISTRY METHOD 07/06/2024 3:17 PM [facility] Chloride 101 96 - 110 mmol/L LAB CHEMISTRY METHOD 07/06/2024 3:17 PM [facility] CO2 30 21 - 32 mmol/L LAB CHEMISTRY METHOD 07/06/2024 3:17 PM [facility] Anion Gap 3 3 - 11 LAB CHEMISTRY METHOD 07/06/2024 3:17 PM [facility] Glucose 98 70 - 100 mg/dL LAB CHEMISTRY METHOD 07/06/2024 3:17 PM [facility] BUN 17 5 - 25 mg/dL LAB CHEMISTRY METHOD 07/06/2024 3:17 PM [facility] Creatinine 1.36(H) 0.70 - 1.30 mg/dL LAB CHEMISTRY METHOD 07/06/2024 3:17 PM [facility] eGFR 58(L) >=60 mL/min/1. 73m2 LAB CHEMISTRY METHOD 07/06/2024 3:17 PM [facility] Comment:Calculation based on the??Chronic Kidney Disease Epidemiology Collaboration (CKD-EPI) equation refit??without adjustment for race. BUN/Creatinine Ratio 12.5 LAB CHEMISTRY METHOD 07/06/2024 3:17 PM [facility] Calcium 9.5 8.5 - 10.5 mg/dL LAB CHEMISTRY METHOD 07/06/2024 3:17 PM [facility] AST (SGOT) 33 10 - 42 unit/L LAB CHEMISTRY METHOD 07/06/2024 3:17 PM [facility] ALT (SGPT) 33 10 - 60 unit/L LAB CHEMISTRY METHOD 07/06/2024 3:17 PM [facility] Alkaline Phosphatase 74 42 - 121 unit/L LAB CHEMISTRY METHOD 07/06/2024 3:17 PM [facility] Total Protein 7.6 6.0 - 8.0 g/dL LAB CHEMISTRY METHOD 07/06/2024 3:17 PM EST [facility] Albumin 3.9 3.2 - 5.0 g/dL LAB CHEMISTRY METHOD 07/06/2024 3:17 PM EST [facility] Total Bilirubin 0.9 0.0 - 1.4 mg/dL LAB CHEMISTRY METHOD 07/06/2024 3:17 PM EST [facility] Blood Venous blood specimen / Unknown Venipuncture / Unknown 07/06/2024 9:55 AM EST 07/06/2024 9:55 AM EST us Carlos Angel MD LAB BLOOD ORDERABLES Final Res ult [facility] [address] [place] [address], [place] [phone] documented in this encounter Visit Diagnoses Diagnosis Adult general medical examination- Primary Unspecified general medical examination Screening for deficiency anemia Screening for other and unspecified deficiency anemia Screening for hyperlipidemia Screening for lipoid disorders Screening for diabetes mellitus Screening for prostate cancer Special screening for malignant neoplasm of prostate Screening for thyroid disorder Hearing loss, unspecified hearing loss type, unspecified laterality Nocturia Leg cramping HIRAM (obstructive sleep apnea) Obstructive sleep apnea (adult) (pediatric) documented in this encounter Discontinued Medications Medication Sig Discontinue Reason Start Date End Da te bisacodyL (DULCOLAX) 5 mg EC tablet Take 2 tablets by mouth right before beginning bowel prep. See instructions provided by the office Therapy completed 06/03/2024 06/30/2024 polyethylene glycol (Golytely) 236-22.74-6.74 -5.86 gram solution Take 4L by mouth once for one dose. May substitue any PEG. Starting at 6PM the night before your procedure drink 1 8oz glasses at your own pace until you complete half of the gallon. Finish 2nd half of the gallon 5 hours before your procedure. Therapy completed 06/03/2024 06/30/2024 sildenafiL (VIAGRA) 100 mg tablet Take 1 tablet (100 mg total) by mouth if needed for erectile dysfunction. 30 minutes prior to intercourse Reorder 09/11/2022 06/30/2024 documented as of this encounter Historical Medications * This list may reflect changes made after this encounter. cholecalciferol (VITAMIN D-3) 25 mcg (1,000 unit) tablet Take 1 tablet (1,000 Units total) by mouth 1 (one) time each day. ascorbic acid (VITAMIN C) 250 mg tablet Take 1 tablet (250 mg total) by mouth 1 (one) time each day. acyclovir (ZOVIRAX) 400 mg tablet Take 1 tablet (400 mg total) by mouth 2 (two) times a day. 05/01/2024 multivitamin with minerals (CENTRUM/CERTAVIT ) 18-400 mg-mcg tablet tablet Take 1 tablet by mouth. added in this encounter Orders Lab Orders Without Results Count Last Ordered D ate First Ordered Date COMPLETE BLOOD COUNT 1 06/30/2024 PROSTATE SPECIFIC ANTIGEN SCREEN 1 06/30/19 25 documented in this encounter Additional Health Concerns Assessment Noted Time PHQ-9 Depression Total Score: 0 06/25/19 25 3:21 PM EST documented as of this encounter Care Teams Content Strategist Relationship Specialty Start Date End Date Carlos Angel MD [address] [place] [phone] PCP - General 12/11/08 documented as of this encounter
--- OUTSIDE RECORDS SUMMARY | 2024-07-22 08:05 | XMS_ITS | Clinical Summary ---
Author Organization [facility] Address [address] [place] [id number] Care Team Providers Care Milk Receiver Name Role Phone Carlos Angel MD Primary Care Provider [phone] Allergies No known active allergies Medications Medication Sig Dispensed Refills Start Date End Date Status sildenafil (VIAGRA) 100 MG tablet Take 100 mg by mouth daily as needed for erectile dysfunction. 0 Active Multiple Vitamin (MULTI-VITAMIN DAILY PO) Take by mouth daily. 0 Active vitamin D3 (VITAMIN D3) 25 MCG (1000 UT) tablet Take 1,000 Units by mouth daily. 0 Active vitamin C (ASCORBIC ACID) 250 MG tablet Take 250 mg by mouth daily. 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 Trisomy 8 (intermediate prognostic factor). Hypertriglyceridemia 12/10/2013 Erectile dysfunction 10/20/2012 Family History Medical History Relation Name Comments Colon cancer Father Anesthesia problems Mother No Sig Med Hx Sister 1 No Sig Med Hx Sister 2 No Sig Med Hx Sister 3 Relation Name Status Comments Father (Age 62) Mother (Age 88) Gastrointe stinal cancer, NOS Sister 1 Sister 2 Sister 3 Social History Tobacco Use Types Packs/Day Years Used Date Smoking Tobacco: Never Smokeless Tobacco: Never Alcohol Use Standard Drinks/Week Comments Yes 0 (1 standard drink = 0.6 oz pur e alcohol) socially Sex and Gender Information Value Date Recorded Sex Assigned at Not on file Gender Identity Not on file Sexual Orientation Not on file Last Filed Vital Signs Vital Sign Reading Time Taken Comments Blood Pressure 134/76 05/30/2020 1:39 PM EST Pulse 95 05/30/2020 1:39 PM EST Temperature 36.6 ??C (97.9 ??F) 05/30/2020 1:39 PM ES T Respiratory Rate - - Oxygen Saturation 99% 05/30/2020 1:39 PM EST Inhaled Oxygen Concentration - - Weight 98.7 kg (217 lb 9.6 oz) 05/30/2020 1:39 P M EST Height 177.8 cm (5' 10 ) 05/30/2020 1:39 PM EST Body Mass Index 31.22 05/30/2020 1:39 PM EST Plan of Treatment Health Maintenance Due Date Last Done Comments Hepatitis C Screening 1960 COVID-19 Vaccine (#1) 10/29/1963 Pneumococcal Vaccine (1 of 2 - PCV) 1964 Pneumococcal Vaccine (1 of 2 - PCV) 1964 Depression Screening 1970 Preventative Health Evaluation 1976 Shingrix-Zoster Vaccine (1 of 2) 1977 Colon Cancer Screening (Colonoscopy) 10/29/2003 DTap / Tdap / Td (2 - Td or Tdap) 01/05/2019 009 Fall Risk Assessment 10/29/2023 Influenza Vaccine (#1) 2024 02/11/2020 RSV Adult > 60+ Yrs or Pregn ant (1 - 1-dose 75+ series) 2033 Hepatitis B Vaccines Aged Out No long er eligible based on patient's age to complete this topic RSV Ped < 20 months Aged Out No longe r eligible based on patient's age to complete this topic Care Teams Milk Receiver Relationship Specialty Start Date End Date Carlos Angel MD PCP - General Internal Medicine 04/22/20
== END 2024-07-22 08:02 | disposition home or self-care (01) ==
LOC: HO.SH 08:01
PROVIDERS: Visit Provider Internal Medicine
DX: Z01.118 Encounter for examination of ears and hearing with other abnormal findings (principal); H90.3 Sensorineural hearing loss, bilateral
CPT/HCPCS: 92557